=== PATIENT | male | born 1945 | race Caucasian/White ===

== ENCOUNTER → 2017-04-25 | Outpatient (CLI) | payer OTHER | LOC: FIMAGING 14:17 | PROVIDERS: ATTEND Neurological Surgery | DX: M51.35 Other intervertebral disc degeneration, thoracolumbar region (principal); Z98.1 Arthrodesis status ==

== ENCOUNTER → 2017-06-06 | Outpatient (CLI) | payer OTHER | LOC: FIMAGING 08:58 | PROVIDERS: ATTEND Nurse Practitioner | DX: M51.35 Other intervertebral disc degeneration, thoracolumbar region (principal) ==

== ENCOUNTER 2017-08-05 05:50 | Inpatient (IN) | payer OTHER ==
[2017-08-05] MEDS ORDERED: ceFAZolin 2 GM/SWFI 2 GM/20 ML SYR IVP ONE (06:00)
[2017-08-05] MEDS ORDERED: ceFAZolin 3 GM in D5W 100 ML IV ONE (06:00)
[2017-08-05] MEDS ORDERED: ACETAMINOPHEN 500 MG TAB PO ONE (06:18)
[2017-08-05] MEDS ORDERED: GABAPENTIN 300 MG CAP PO ONE (06:18)
[2017-08-05] MEDS ORDERED: LR 1,000 ML IV ONE (06:19)
--- NOTE | 2017-08-05 06:37 | PDHPUP ---
History & Physical Update H&P update statement: This history and physical update is based on an assessment of the patient which was completed after admission or registration (within 24 hours), but prior to the surgery/procedure. H&P update: H&P reviewed & patient examined, no change in patient's condition since H&P completed
[2017-08-05] MEDS ORDERED: THROMBIN (BOVINE) 5,000 UNIT VIAL TP ONE (07:02)
[2017-08-05] MEDS ORDERED: BUPIVACAINE 0.25% 30 ML SDV ONE ×3 (07:02→08:38)
[2017-08-05] MEDS ORDERED: BACITRACIN 50,000 UNITS/10 ML SYR IRR ONE ×2 (07:03→07:12)
[2017-08-05] MEDS ORDERED: THROMBIN (BOVINE) 20,000 UNIT VIAL TP ONE (07:12)
--- NOTE | 2017-08-05 07:16 | PDANEPAE ---
ANE History of Present Illness Nayan presents for back surgery ANE Past Medical History - Cardiovascular History Hx Hypertension: Yes Hx Arrhythmias: No Hx Chest Pain: No Hx Coronary Artery / Peripheral Vascular Disease: No Hx CHF / Valvular Disease: No Hx Palpitations: No - Pulmonary History Hx COPD: Yes Hx Asthma/Reactive Airway Disease: No Hx Recent Upper Respiratory Infection: No Hx Oxygen in Use at Home: Yes O2 in Use at Home (L/minute): 2 Hx Sleep Apnea: Yes Sleep Apnea Screening Result - Last Documented: Positive Pulmonary History Comment: CPAP W O2 2L/M - Neurologic History Hx Cerebrovascular Accident: No Hx Seizures: No Hx Dementia: No Neurologic History Comment: Tingling R hand. - Endocrine History Hx Diabetes: No - Renal History Hx Renal Disorders: No - Liver History Hx Hepatic Disorders: No - Neurological & Psychiatric Hx Hx Neurological and Psychiatric Disorders: No - Cancer History Hx Cancer: Yes Cancer History Comment: BASAL CELL FOREHEAD AND NOSE-removed. - Congenital Disorder History Hx Congenital Disorders: No - GI History Hx Gastrointestinal Disorders: Yes Gastrointestinal History Comment: POLYPS. GERD - Other Health History Other Health History: Mild ringing both ears. Arthritis in joints. R SHOULDER PAIN AND LIMITED ROM. - Chronic Pain History Chronic Pain: Yes (, L hip) - Surgical History Prior Surgeries: LUMBAR FUSION, cervical fusion-2012. L knee scope. FX R ARM- ORIF. L&R SHOULDER repair. Carpal tunnel both hands. T&A as child. ANE Review of Systems Review of Systems: - Exercise capacity METS (RN): 4 METS ANE Patient History - Allergies Allergies/Adverse Reactions: HAYFEVER Allergy (Unknown, Uncoded 05/30/10 13:40) Congestion - Home Medications Home medications: home medication list seen and reviewed Home Medications: Albuterol [Proventil Inhaler HFA (*)] 1 - 2 puffs IH Q4H PRN 06/29/17 [Last Taken Unknown] Aspirin [Aspirin 81mg (*)] 81 mg PO DAILY 06/29/17 [Last Taken 07/29/17] Atorvastatin Calcium [Lipitor 10 mg (*)] 10 mg PO HS 06/29/17 [Last Taken ] Fluticasone Nasal [Flonase Nasal [place] (RX)] 2 sprays NASAL HS 06/29/17 [Last Taken 08/03/17] Gabapentin [Neurontin 300 MG (*)] 300 mg PO DAILY PRN 06/29/17 [Last Taken 08/04] Hydrocodone/Acetaminophen [[place] 5/325 (*)] 1 each PO Q6-8PRN PRN 06/29/17 [ Last Taken 08/04/17] Loratadine [Claritin] 10 mg PO DAILY PRN 06/29/17 [Last Taken 08/03/17] Methocarbamol [Robaxin 750 mg (*)] 750 mg PO TID PRN 06/29/17 [Last Taken ] Omeprazole Magnesium [Prilosec Otc] 20 mg PO DAILY 06/29/17 [Last Taken 08/04/17 ] amLODIPine BESYLATE [Norvasc 5 mg (*)] 5 mg PO DAILY AT 6PM 06/29/17 [Last Taken 08/04/17] celeCOXIB [Celebrex (*)] 200 mg PO DAILY AT 6PM 06/29/17 [Last Taken 08/04/17] Lyrica 50mg (*) 0 mg PO AD 08/05/17 [Last Taken 08/05/17] - NPO status NPO Status: no food or drink >8 hours NPO Since - Liquids (Date): 08/05/17 NPO Since - Solids (Date): 08/04/17 - Smoking Hx Smoking Status: Former smoker - Family Anes Hx Family Hx Anesthesia Complications: NONE ANE Labs/Vital Signs - Vital Signs Heart Rate: 68 Respiratory Rate: 14 Height: 172.72 cm Weight: 92.986 kg ANE Physical Exam - Airway Neck exam: decreased ROM Mallampati Score: Class 2 - Pulmonary Pulmonary: no respiratory distress - Cardiovascular Cardiovascular: regular rate and rhythym - ASA Status ASA Status: III ANE Anesthesia Plan Anesthesia Plan: general endotracheal anesthesia Lines/Monitors: arterial line (rba discussed)
[2017-08-05] MEDS ORDERED: Loratadine [Claritin] 10 MG PO PRN (07:18)
[2017-08-05] MEDS ORDERED: ALBUTEROL 200 PUFFS/18 GM MDI IH PRN (07:18)
[2017-08-05] MEDS ORDERED: BISACODYL 10 MG SUPP PR PRN (07:20)
[2017-08-05] MEDS ORDERED: ONDANSETRON 4 MG/2 ML VIAL IVP PRN ×2 (07:20→11:21)
[2017-08-05] MEDS ORDERED: diphenhydrAMINE 25 MG CAP PO PRN (07:20)
[2017-08-05] MEDS ORDERED: MAGNESIUM HYDROXIDE 30 ML UDCUP PO PRN (07:20)
[2017-08-05] MEDS ORDERED: HYDROmorphONE/DILAUDID 6 MG/30 ML PCA IV PRN (07:20)
[2017-08-05] MEDS ORDERED: ONDANSETRON DISINTEGRATING 4 MG TAB PO PRN (07:20)
[2017-08-05] MEDS ORDERED: LACTULOSE 20 GM/30 ML UDCUP PO PRN (07:20)
[2017-08-05] MEDS ORDERED: HYDROmorphONE/DILAUDID 1 MG/ML INJ IVP PRN ×2 (07:20→11:21)
[2017-08-05] MEDS ORDERED: NALOXONE HCL 0.4 MG/ML INJ IVP PRN ×2 (07:20→11:21)
[2017-08-05] MEDS ORDERED: REMIFENTANIL HCL 1 MG VIAL ONE ×2 (07:23→07:24)
[2017-08-05] MEDS ORDERED: PROPOFOL 200 MG/20 ML VIAL ONE (07:24)
[2017-08-05] MEDS ORDERED: PROPOFOL/EMULSION 500 MG/50 ML BOTTLE IV ONE ×2 (07:24→09:57)
[2017-08-05] MEDS ORDERED: fentaNYL 100 MCG/2 ML INJ ONE (07:24)
[2017-08-05] MEDS ORDERED: CETIRIZINE 10 MG TAB PO PRN (07:27)
[2017-08-05] MEDS ORDERED: NS W/ 20 KCl/L 1,000 ML IV SCH (07:30)
[2017-08-05] MEDS ORDERED: LIDOCAINE 2% 5 ML SDV ONE (07:35)
[2017-08-05] MEDS ORDERED: ROCURONIUM 50 MG/5 ML VIAL ONE (07:35)
[2017-08-05] MEDS ORDERED: PHENYLEPHRINE HCL 100 MCG/ML SYR ONE (07:46)
[2017-08-05] MEDS ORDERED: epHEDrine SULFATE 10 MG/ML SYR ONE ×2 (08:30)
[2017-08-05] MEDS ORDERED: Omeprazole Magnesium [Prilosec Otc] 20 MG PO SCH (09:00)
[2017-08-05] MEDS ORDERED: HYDROmorphONE/DILAUDID 2 MG/ML INJ ONE (10:30)
[2017-08-05] MEDS ORDERED: LR 500 ML IV PRN (11:21)
[2017-08-05] MEDS ORDERED: HYDROCODONE/APAP 5/325 TAB PO PRN (11:21)
[2017-08-05] MEDS ORDERED: OXYCODONE/APAP 5/325 TAB PO PRN (11:21)
[2017-08-05] MEDS ORDERED: fentaNYL 100 MCG/2 ML INJ IVP PRN (11:21)
--- NOTE | 2017-08-05 11:51 | SOAPPROG ---
SOAP Progress Note Assessment/Plan: Post Op Visit: S: Awake and alert. NAD. Pt with expected lower back pain O: AFVSS/PERRLA/EOMI no droop CN 2-12 grossly intact +lt touch 5/5 BUE/BLE = CDI FRANKLIN in place A/P: 71 yo male that is s/p T12/L1 tie in TLIF fusion -orders in place -call with any questions or concerns -pt seen by Dr Ritter as well -admit to floor -brace when out of bed 08/05/17 11:48 Objective: Vital Signs Temp Pulse Resp BP Pulse Ox 36.4 C 68 14 113/80 91 L 08/05/17 06:24 08/05/17 07:16 08/05/17 07:16 08/05/17 06:24 08/05/17 06:24 ICD10 Worksheet Patient Problems: Problems Problem Status Onset Arthrodesis status Acute Lumbar radicular pain Acute Lumbar stenosis Acute Arthritis of left hip Acute - ICD10 Problem Qualifiers (1) Lumbar stenosis (2) Lumbar radicular pain (3) Arthrodesis status
--- NOTE | 2017-08-05 12:16 | POSTANESTH ---
Post Anesthetic Evaluation Cardiovascular Status: Normal, Stable Respiratory Status: Similar to Pre-op Cond. Level of Consciousness/Mental Status: Mildly Sleepy, Arousable Pain Control: Adequate, Prn Tx Ordered Nausea/Vomiting Control: Adequate, Prn Tx Ordered Complications Possibly Related to Anesthesia: None Noted
[2017-08-05] MEDS: FAMOTIDINE 20 MG TAB PO SCH ×2 (12:49→20:26)
[2017-08-05] MEDS: morphINE SR 15 MG TAB PO SCH ×2 (12:49→20:26)
[2017-08-05] MEDS: SENNOSIDES/DOCUSATE SODIUM TAB PO SCH ×2 (12:50→20:27)
[2017-08-05] MEDS: PANTOPRAZOLE SODIUM 40 MG TAB PO SCH (12:50)
--- NOTE | 2017-08-05 14:12 | GOP ---
[f rep st] OPERATIVE REPORT DATE OF OPERATION: 08/05/2017 SURGEON: Peewee Ritter MD RISK SPECIALIST: Elijah Strickland PA-C. PREOPERATIVE DIAGNOSIS: 1. Severe spinal stenosis, T12-L1. 2. Adjacent segment disease, T12-L1. 3. Prior lumbar fusion, L1-S1. POSTOPERATIVE DIAGNOSIS: 1. Severe spinal stenosis, T12-L1. 2. Adjacent segment disease, T12-L1. 3. Prior lumbar fusion, L1-S1. PROCEDURE PERFORMED: Posterolateral and intervertebral arthrodesis with bilateral decompressions, T1 2-L1, with a posterolateral and intervertebral arthrodesis same level ([id number]), placement of biomechan ical intervertebral device, T12-L1, spinal stereotaxy, removal of posterior segmental instrumentation at L1 with removal of instrumentation at L2 and cutting of the prior rods, same incision bone graft harvest, microscope. FINDINGS: ESTIMATED BLOOD LOSS: 200 cc. INDICATIONS: The patient a middle-aged gentleman with a prior history of an L1-S1 fusion that appear ed solidly healed. He developed severe bilateral leg pain that was unrelenting and did not respond t o any conservative measures. He desired to have surgery. An MRI of the spine did demonstrate severe stenosis at the adjacent segment at T12-L1 with collapse of the disk space there as well as gas in t he T12-L1 disk. The risk of surgery was discussed. He knew that there was a chance of further adjac ent segment degeneration higher in the thoracic spine. There was currently no compressive lesion els ewhere in the thoracic spine, and I suggested extending the fusion by 1 level. The risk of screw and hardware complication was discussed as well as risk of CSF leak, continued symptoms as well as the r isk of further adjacent segment surgery. He knew there was a chance he may fail to improve with this surgery and that there is risk of nerve injury. He also knew there was a slight risk of spinal cord injury, but this risk was low. He wanted to proceed. DESCRIPTION OF PROCEDURE: Patient was taken to the operating room, placed in a supine position. Gen eral anesthesia was begun. He was flipped prone onto the Andrés table. Care was taken to pad all p oints of contact. His back was sterilely prepped and draped in the usual fashion. A localizing x-ra y was taken. Made a midline incision, extended the incision rostrally by about 2-1/2 inches. We ext ended inferiorly by about 2-1/2 inches for a total incision length of about 5 inches. The subcutaneo us tissue was dissected using Bovie cautery down to the fascia, and a subperiosteal dissection was ma de down the inferior T11 lamina. The T12 lamina as well as the prior hardware at L1 and L2 were expo sed. We removed the set screws at L1 and L2. We then took a carbide bit, and it took considerable t paul, but we cut the rods off at the L1 screws. We then removed the L1 screws themselves as well as t he piece of valeriano that was cut. We then took time prepping the valeriano for acceptance of a connector and i nserted the connector to our satisfaction. We then attached the Stealth reference frame to the spino us process of T12 and then performed an O-arm spin using frame of stealth stereotaxy, placed pedicle screws bilaterally at T12. We placed connectors through the rostral portion of the valeriano coming off th e T2 screws. We then took a 45 and a 50 mm valeriano and cut off the small notch at the end of the valeriano and laid it down from the L2 screws all the way up to the T12 screws. A connector was placed where the L1 screw had been located. We did check the position and the screws with an O-arm spin. We placed t he valeriano in and torqued the set screws, replacing the set screws at L2. The 2 set screws and then conn ectors were torqued as well as the T12 cap screws. We shot an x-ray, and there was slight bony retro listhesis of T12 on L1. We elected to change our valeriano configuration, and we removed both rods and bao t them. This was the transition between lordosis and kyphosis, and we changed the configuration of t he valeriano and put the bend anteriorly. We then final tightened everything as we had done previously, sh ot an x-ray, and I was more happy with the position of the T12 bone on the L1 vertebral body. We the n removed all the soft tissue of the bone from the T12-L1, harvested the T12 spinous process for auto logous grafting purposes and the rostral L1 spinous process for autologous grafting purposes. Under the microscope, we drilled bilateral laminectomy at T12-L1. There was really remarkable stenosis, an d we decompressed from the inferior T12 pedicle to the rostral L1 pedicle. On the left-hand side, we identified the exiting T12 root. We removed the IAP-SAP complex on the left, mobilized the thecal s ac, but we did not sweep it medially. We simply put a retractor to protect the lateral border of the thecal sac. We coagulated the epidural veins, incised the T12-L1 disk, and then removed the disk in its cartilaginous endplates completely. I chose a 7 mm x 25 mm [place] PEEK intervertebral device. The trial was inserted. An x-ray was taken. We roughened the subchondral bone to create arthrodes is. We placed bone autograft and BMP into the disk space followed by the 7 x 25 mm device that had B MP placed inside of it, 1.0 mg was used in the interspace. We then decorticated all the remaining glendy ne posterolaterally bilaterally, placed BMP and bony autograft posterolaterally bilaterally. A total of 2.0 mg was used for the entire surgery. We final tightened all the cap screws according to asad ny specification, placed a subfascial drain. We shot final x-rays confirming the position of our dev ice and all of our hardware. We then closed the incision in multiple layers using Vicryl sutures. A running PDS was placed in the skin itself. The patient was reversed from anesthesia, extubated, and transferred to recovery room in stable condition. COMPLICATIONS: None. /[id number]/MODL
[2017-08-05] MEDS: ACETAMINOPHEN 325 MG TAB PO SCH (14:29)
[2017-08-05] MEDS: HYDROCODONE/APAP 5/325 TAB PO PRN ×2 (14:32→21:48)
[2017-08-05] MEDS: METHOCARBAMOL 750 MG TAB PO PRN (14:32)
[2017-08-05] MEDS: oxyCODONE IR 5 MG TAB PO PRN (15:29)
[2017-08-05] MEDS: ceFAZolin 2 GM/DEXTROSE 100 ML IV SCH (15:32)
--- NOTE | 2017-08-05 16:31 | ASMTCMCOM ---
CM Note CM Note Notes: Pt s/p spinal surgery for ASD and DDD. PT/OT pending. He has had [facility] in the past. CM will follow for any d/c needs. Date Signed: 08/05/2017 04:30 PM Electronically Signed By:HAYDE Rosenberg
[2017-08-05] MEDS: amLODIPine BESYLATE 5 MG TAB PO SCH (17:43)
[2017-08-05] MEDS: POLYETHYLENE GLYCOL 3350 17 GM PKT PO PRN (17:44)
[2017-08-05] MEDS: ATORVASTATIN CALCIUM 10 MG TAB PO SCH (20:26)
[2017-08-06] MEDS: ceFAZolin 2 GM/DEXTROSE 100 ML IV SCH (00:02)
[2017-08-06] MEDS: ACETAMINOPHEN 325 MG TAB PO SCH ×4 (00:05→14:10)
[2017-08-06] MEDS: FLUTICASONE NASAL 120 SPRAYS/16 GM MDI EACHNARE SCH ×2 (00:06→21:26)
[2017-08-06] MEDS: HYDROCODONE/APAP 5/325 TAB PO PRN ×5 (04:07→21:28)
[2017-08-06 05:43] LABS: ANION GAP 8 mEq/L (8-16); CALCIUM 8.1 mg/dL (8.5-10.4); CARBON DIOXIDE 23 mEq/l (22-31); CHLORIDE 108 mEq/L (97-110); GLOMERULAR FILTRATION RATE > 60; GLUCOSE 153 mg/dL (70-100); POTASSIUM 4.4 mEq/L (3.5-5.2); SODIUM 139 mEq/L (134-144)
[2017-08-06 05:59] LABS: % IMMATURE GRANULYOCYTES 0.3 % (0.0-1.1); ABSOLUTE IMMATURE GRANULOCYTES 0.04 10^3/uL (0.00-0.10); ADD DIFF? NO; ADD MORPH? NO; ADD SCAN? NO; ATYPICAL LYMPHOCYTE FLAG 0 (0-99); FRAGMENT RBC FLAG 0 (0-99); HEMATOCRIT 36.2 % (40.0-51.0); HEMOGLOBIN 12.1 g/dL (13.7-17.5); LEFT SHIFT FLG 0 (0-99); LIPEMIA HEMOLYSIS FLAG 80 (0-99); MEAN CELL HEMOGLOBIN 31.2 pg (27.9-34.1); MEAN CELL HEMOGLOBIN CONCENTR. 33.4 g/dL (32.4-36.7); MEAN CELL VOLUME 93.3 fL (81.5-99.8); MEAN PLATELET VOLUME 8.8 fL (8.7-11.7); PLATELET CLUMPS FLAG 10 (0-99); PLATELET COUNT 177 10^3/uL (150-400); RED BLOOD CELL COUNT 3.88 10^6/uL (4.40-6.38); RED CELL DISTRIBUTION WIDTH 14.6 % (11.5-15.2)
[2017-08-06] MEDS: METHOCARBAMOL 750 MG TAB PO PRN ×3 (06:02→21:28)
[2017-08-06] MEDS: FAMOTIDINE 20 MG TAB PO SCH ×2 (07:08→21:28)
[2017-08-06] MEDS: PANTOPRAZOLE SODIUM 40 MG TAB PO SCH (07:09)
[2017-08-06] MEDS: morphINE SR 15 MG TAB PO SCH ×2 (07:09→22:28)
[2017-08-06] MEDS: SENNOSIDES/DOCUSATE SODIUM TAB PO SCH ×2 (07:09→21:27)
[2017-08-06] MEDS: GABAPENTIN 300 MG CAP PO PRN (07:10)
[2017-08-06] MEDS: POLYETHYLENE GLYCOL 3350 17 GM PKT PO PRN (07:11)
--- NOTE | 2017-08-06 07:30 | NEUSURGPN ---
Date of Surgery: 08/05/17 Post Op Day: 1 Assessment/Plan: Assessment: 71 yo male that is s/p T12/L1 tie in TLIF fusion POD #1 Plan: -s/p fusion: pt with expected lower back pain, pt states some left anterior thigh pain-better but still present -post op xrays pending today -continue with current pain management -brace when out of bed -FRANKLIN to remain in today-likely pull in am -orders in place -call with any questions or concerns -pt seen by Dr Ritter as well -PT/OT-CPM -plan for dc in next few days depending on how Mr Salgado does 08/05/17 11:48 Subjective: Awake and alert. NAD. Eating/drinking and voiding. No f/c/n/v/d. No mtz/neck/ chest/abd or gu complaints. Objective: AFVSS/PERRLA/EOMI no droop CN 2-12 grossly intact +lt touch 5/5 BUE/BLE = CDI FRANKLIN in place Neuro Check Frequency: per routine Urinary Catheter in Place: No Catheter Insertion Date: 08/05/17 - Physician Discussed Patient with : Stone Patient Seen by : Stone Neurosurgery Physical Exam - Vitals, I&O, Labs I and O 08/05/17 08/06/17 08/07/17 05:59 05:59 05:59 Intake Total 1475 Output Total 1200 Balance 275 Weight 92.986 kg Intake: Oral (ml) 1475 Output: Urine (ml) 800 Catheter 800 FRANKLIN Drain Output (ml) 400 #1 Posterior Back 400 Vital Signs Temp Pulse Resp BP Pulse Ox 36.6 C 83 16 95/56 L 96 08/06/17 07:07 08/06/17 04:00 08/06/17 07:07 08/06/17 04:00 08/06/17 07:07 Laboratory Results 08/06/17 04:51 08/06/17 04:51 ICD10 Worksheet Patient Problems: Problems Problem Status Onset Arthrodesis status Acute Lumbar radicular pain Acute Lumbar stenosis Acute Arthritis of left hip Acute - ICD10 Problem Qualifiers (1) Lumbar stenosis (2) Lumbar radicular pain (3) Arthrodesis status
--- NOTE | 2017-08-06 12:32 | ASMTCMCOM ---
CM Note CM Note Notes: PT/OT clear pt for home. Anticipate pt will d/c when medically stable. CM available for changes/needs. Date Signed: 08/06/2017 12:31 PM Electronically Signed By:HAYDE Brunson
[2017-08-06] MEDS: amLODIPine BESYLATE 5 MG TAB PO SCH (18:18)
[2017-08-06] MEDS: ATORVASTATIN CALCIUM 10 MG TAB PO SCH (21:27)
[2017-08-07] MEDS: ACETAMINOPHEN 325 MG TAB PO SCH ×2 (00:29→06:50)
[2017-08-07] MEDS: GABAPENTIN 300 MG CAP PO PRN (03:34)
[2017-08-07] MEDS: oxyCODONE IR 5 MG TAB PO PRN ×2 (03:34→07:24)
[2017-08-07] MEDS: METHOCARBAMOL 750 MG TAB PO PRN (07:24)
[2017-08-07 07:34] VITALS: BP 138/84; PULSE 64; RESP 16; TEMP 98; O2SAT 96
--- NOTE | 2017-08-07 08:18 | NEUSURGPN ---
Assessment/Plan: Assessment: 71 yo male that is s/p T12/L1 tie in TLIF fusion POD #2 Plan: -s/p fusion: pt with expected lower back pain, pt states some left anterior thigh pain-better but still present -post op xrays with intact hardware -continue with current pain management -brace when out of bed -d/ FRANKLIN drain -call with any questions or concerns -PT/OT-CPM -plan for dc later today Subjective: Low back pain, Denies any leg pain, numbness, tingling or weakness. Objective: NAD A&Ox3 MAEx4 / and equal in BUE and BLE. Incision c/d/i Catheter Insertion Date: 08/05/17 - Physician Discussed Patient with : Stone Neurosurgery Physical Exam - Vitals, I&O, Labs I and O 08/06/17 08/07/17 08/08/17 05:59 05:59 05:59 Intake Total 1475 1600 Output Total 1200 220 Balance 275 1380 Weight 92.986 kg Intake: Oral (ml) 1475 1600 Output: Urine (ml) 800 Catheter 800 FRANKLIN Drain Output (ml) 400 220 #1 Posterior Back 400 220 Other: Intake Quantity Yes Sufficient Number of Voids Toilet 1 Number of Stools Toilet 1 Vital Signs Temp Pulse Resp BP Pulse Ox 36.7 C 64 16 138/84 H 96 08/07/17 07:33 08/07/17 07:33 08/07/17 07:33 08/07/17 07:33 08/07/17 07:33 Laboratory Results 08/06/17 04:51 08/06/17 04:51 ICD10 Worksheet Patient Problems: Problems Problem Status Onset Arthrodesis status Acute Lumbar radicular pain Acute Lumbar stenosis Acute Arthritis of left hip Acute
[2017-08-07] MEDS: morphINE SR 15 MG TAB PO SCH (09:45)
[2017-08-07] MEDS: PANTOPRAZOLE SODIUM 40 MG TAB PO SCH (09:46)
[2017-08-07] MEDS: SENNOSIDES/DOCUSATE SODIUM TAB PO SCH (09:46)
[2017-08-07] MEDS: FAMOTIDINE 20 MG TAB PO SCH (09:46)
--- NOTE | 2017-08-07 11:35 | ASDISCHSUM ---
Discharge Information Plan Status:Home with No Needs Medically Cleared to Leave: Discharge Date:08/07/2017 11:27 AM CM D/C Disposition:Home, Routine, Self-Care ADT D/C Disposition:Home, Routine, Self-Care Projected Discharge Date:08/07/2017 11:27 AM Transportation at D/C: Discharge Delay Reason: Follow-Up Date:08/07/2017 11:27 AM Discharge Slot: Final Diagnosis: Placement Information Patient Contact Information Contact Name:KATE Relationship: [facility] [place] Phone: [place]:[facility] Phone: [facility]/Zip Code:[place] [address] Email: Financial Information Financial Class: Primary Plan Desc:MEDICARE INPATIENT Primary Plan Number:[id number] Secondary Plan Desc:[place] Secondary Plan Number:[id number] Assessment Information [facility] CM Progress Note CM Note CM Note Notes: Pt s/p spinal surgery for ASD and DDD. PT/OT pending. He has had [facility] in the past. CM will follow for any d/c needs. Date Signed: 08/05/2017 04:30 PM Electronically Signed By:HAYDE Rosenberg [facility] CM Progress Note CM Note CM Note Notes: PT/OT clear pt for home. Anticipate pt will d/c when medically stable. CM available for changes/needs. Date Signed: 08/06/2017 12:31 PM Electronically Signed By:HAYDE Brunson Intervention Information Intervention Type:*IM-Signed Date of Service:08/07/2017 09:40 AM Patient Type:Inpatient Staff Member:Isabel Jules Hours: Discipline: Severity: Comment:
[2017-08-08] MEDS ORDERED: ENOXAPARIN 40 MG/0.4 ML SYR SC SCH (09:00)
== END 2017-08-07 11:27 | disposition home or self-care (01) | DRG 460 ==
LOC: F3N 05:50
PROVIDERS: ADMIT Neurological Surgery; ATTEND Neurological Surgery
PROC: 0RGA0AJ Fusion of Thoracolumbar Vertebral Joint with Interbody Fusion Device, Posterior Approach, Anterior Column, Open Approach (ICD-10-PCS; principal; 2017-08-05 07:30)
PROC: 0RTB0ZZ Resection of Thoracolumbar Vertebral Disc, Open Approach (ICD-10-PCS; principal; 2017-08-05 07:30)
PROC: 0SP00AZ Removal of Interbody Fusion Device from Lumbar Vertebral Joint, Open Approach (ICD-10-PCS; principal; 2017-08-05 07:30)
PROC: 01NB0ZZ Release Lumbar Nerve, Open Approach (ICD-10-PCS; principal; 2017-08-05 07:30)
DX: M48.05 Spinal stenosis, thoracolumbar region (principal); I10 Essential (primary) hypertension; J44.9 Chronic obstructive pulmonary disease, unspecified; G47.30 Sleep apnea, unspecified; Z98.1 Arthrodesis status
CPT/HCPCS: 97161-GP; 97165-GO; 97535-GO; C1713; G8978-GP-CI; G8979-GP-CI; G8980-GP-CI; G8987-GO-CI; G8988-GO-CH; J0171; J0690; J1170; J2370; J2704; J3010

== ENCOUNTER → 2017-10-06 | Outpatient (CLI) | payer OTHER | LOC: FIMAGING 13:39 | PROVIDERS: ATTEND Nurse Practitioner | DX: Z09 Encounter for follow-up examination after completed treatment for conditions other than malignant neoplasm (principal); Z98.1 Arthrodesis status ==

== ENCOUNTER → 2017-12-29 | Outpatient (CLI) | payer OTHER | LOC: FLAB 14:13 | PROVIDERS: ATTEND Nurse Practitioner | DX: Z98.1 Arthrodesis status (principal) ==

== ENCOUNTER → 2018-11-30 | Outpatient (CLI) | payer OTHER, MEDICARE | LOC: FIMAGING 09:49 | PROVIDERS: ATTEND Neurological Surgery | DX: M43.26 Fusion of spine, lumbar region (principal); M54.5 Low back pain; M51.36 Other intervertebral disc degeneration, lumbar region ==